=== PATIENT | male | born 1935 | race Caucasian/White ===

== ENCOUNTER 2025-01-31 22:53 | Emergency (ER) | payer BC, SELFPAY ==
[2025-01-31 22:57] VITALS: BP 132/94
[2025-01-31 23:41] LABS: ALT (SGPT) 20 U/L (0-50); AST (SGOT) 23 U/L (17-59); Albumin 4.6 g/dl (3.5-5.0); Alkaline Phosphatase 72 U/L (38-126); Blood Urea Nitrogen 18 mg/dl (9-20); Calcium 9.6 mg/dl (8.4-10.2); Carbon Dioxide 22 mmol/L (22-30); Chloride 97 mmol/L (98-107); Glucose 211 mg/dl (70-99); Potassium 4.5 mmol/L (3.5-5.1); Sodium 134 mmol/L (135-145); Total Bilirubin 1.4 mg/dl (0.2-1.3); Total Protein 7.4 g/dl (6.3-8.2); eGFR > 60.00
--- NOTE | 2025-02-01 00:16 | ED.GENMED ---
History of Present Illness
General
Chief Complaint: Weakness
Time Seen by Provider: 02/01/25 00:03
History of Present Illness
History of Present Illness:
89-year-old male history of hypertension, hyperlipidemia, diabetes presenting with difficulty walking. Patient states that he has had episodes where he stands up, feels dizzy then has a hard time walking. Family states that patient fell backwards
against a wall earlier today prompting ED evaluation. Patient denies striking his head or loss of consciousness. Patient is on baby aspirin but no blood thinners. Patient denies any numbness, weakness, tingling, headache, chest pain, shortness of
breath, new cough, abdominal pain, or urinary symptoms.
Past History
Past History
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
Social History
Tobacco: Non-smoker
Alcohol: Daily
Drug: None
Personal:
Living: with family
Employment: Retired
Family History
Family History: Other (Noncontributory)
Phy Exam
Physical Exam
Physical Exam:
General: Alert, no acute distress
Head: NCAT
Eyes: clear conjunctiva
Neck: supple
Cardiac: regular rate and rhythm, no murmur
Lungs: Diffuse expiratory wheeze. No rales, or rhonchi. Speaking full unlabored sentences. No respiratory distress.
Abdomen: soft, nondistended nontender. No rebound or guarding.
MSK: no lower extremity edema bilaterally. No deformity
Skin: warm, dry
Neuro: Alert and oriented x3. Cranial nerves II through XII grossly intact no focal deficits. Normal finger-nose and [id number]. 5-5 strength bilateral upper and lower extremities. No pronator drift. Sensation intact.
Course
Orders/Labs/Results
Orders:
Orders
01/31/25 23:00
Electrocardiogram (*1) Urgent
Reason for Study: Other
Other Reason for Exam: Possible Sepsis
01/31/25 23:01
EKG- Treatment ONCE
01/31/25 23:09
Comprehensive Metabolic Panel Urgent
02/01/25 00:03
CT Head W/o Iv Contrast Urgent
Reason For Exam: weakness, unsteady gait
02/01/25 00:10
Complete Blood Count/With Diff Urgent
Comment: REDRAW
Manual Differential Urgent
02/01/25 00:37
UA Reflex to Culture [Urinalysis Reflex To Culture] Urgent
Date Specimen was Collected: 02/01/25
Time Specimen was Collected: 00:32
Urine Microscopic Reflex Cult Urgent
Urine Culture Urgent
SHANNAN Source: U
Specimen Description:
Date Specimen was Collected: 02/01/25
Time Specimen was Collected: 00:32
02/01/25 01:05
CXR2 [CR Chest - 2 Views ] Urgent
Comment:
Reason For Exam: cough wheeze
Abnormal Lab Results
01/31/25 02/01/25 02/01/25
23: 00:10 00:37
WBC 3.5 L 10^3/uL
(4.8-10.8)
RBC 4.54 L 10^6/uL
(4.70-6.10)
Plt Count 84 L 10^3/uL
(130-400)
Segmented Neutrophils 36 L %
(42-75)
Band Neutrophils 18 H %
(0-3)
Eosinophils (Manual) 15 H %
(0-6)
Sodium 134 L mmol/L
(135-145)
Chloride 97 L mmol/L
(98-107)
Glucose 211 H mg/dl
(70-99)
Total Bilirubin 1.4 H mg/dl
(0.2-1.3)
Urine Bacteria (Reflex) Moderate A
(Negative)
Urine Glucose 3+ A
(Negative)
Urine Albumin (Reflex) 2+ A
(Neg - Trace)
02/01/25 00:37
01/31/25 23:09
Vital Signs
Initial and Last Documented VS:
Initial Vital Signs
Temp Pulse Resp BP Pulse Ox
98.2 F 101 20 132/94 92
01/31/25 22:57 01/31/25 22:57 01/31/25 22:57 01/31/25 22:57 01/31/25 22:57
Last Documented Vital Signs
Temp Pulse Resp BP Pulse Ox
98.2 F 94 18 132/89 93
01/31/25 22:57 02/01/25 01:44 02/01/25 01:44 02/01/25 01:44 02/01/25 01:44
MDM/Problems Addressed
Differential Diagnosis Includes:
Orthostatic hypotension, electrolyte abnormality, MORRIS, UTI intracranial hemorrhage, arrhythmia
MDM/Problems Addressed:
89-year-old male presenting with unsteady gait starting today. Patient reports feeling dizzy at the time, started after he stood up. Patient denies any complaints at this time is requesting be discharged. On exam patient has an audible wheeze
that family states is baseline for patient. Patient states that he does not use his inhaler as prescribed. Patient denies any chest pain, shortness of breath, or new cough. Patient denies any dizziness currently.
Labs reviewed. Significant for WBC 3.5, platelets 84. Creatinine wnl. Hyperglycemia at 211. Anion gap 15, patient not in DKA. UA shows bacteria but no WBC, leukocyte esterase or nitrites - higher suspicion for colonization, lower suspicion for UTI.
CT head unremarkable. CXR clear with no focal infiltrate or consolidation as read by me. On reevaluation, patient remains asymptomatic with no dizziness. Pt ambulatory with steady gait. Patient possibly symptomatic from standing up too quickly.
Discussed results with patient and family at bedside. Stable for discharge with PCP follow up
*EKG
Interpreted by ED Provider?: Yes (EKG shows normal sinus rhythm at 97 bpm with NJ 214 QTc 454 no acute ischemic changes)
*Critical Care Note
Total Time (30-74mins, 75-104mins- exclusive of procedures): Not Applicable
ED Attending Note
-
Portions of this chart may have been created with voice recognition software.� Occasional wrong word or��sound alike� substitutions may have occurred due to the inherent limitations of voice recognition software.
Discharge Plan
Departure
Patient Disposition: Home (Routine Discharge)
Date of Disposition: 02/01/25
Time of Disposition: 03:05
Patient with high blood pressure during this ER visit?: Yes
Discharge Problem:
Dizziness
Instructions: Dizziness
Prescriptions:
No Action
levothyroxine 75 MCG tablet
75 mcg PO DAILY
omeprazole 20 MG capsule,delayed release(DR/EC)
20 mg PO DAILY
valsartan 160 MG tablet
160 mg PO DAILY
hydrochlorothiazide 12.5 MG tablet
12.5 mg PO DAILY
atorvastatin 40 MG tablet
40 mg PO QPM Qty: 30 0RF
aspirin 81 MG tablet,chewable
81 mg PO DAILY Qty: 30 0RF
metformin 500 MG tablet extended release 24 hr
500 mg PO BID Qty: 1 0RF
Referrals:
Elza Martin, [Family Provider] -
Activity Restrictions/Additional Instructions:
Drink lots of water, stay hydrated
Follow-up with your primary care doctor in 1 to 2 days
Return to the emergency department for fever, chills, or new/worsening symptoms
Interventions
Interventions:
*Risk Screen - Suicide Last Done: 01/31/25 22:57
*General Assessment Last Done: 01/31/25 22:57
*Neglect/Abuse Screening Last Done: 01/31/25 22:57
*ED- Fall Risk Assessment Last Done: 02/01/25 01:40
*ED COVID-19 Vaccine History Last Done: 02/01/25 01:40
ED- Cardiac Assessment Last Done: 02/01/25 01:02
ED- Neurological Assessment Last Done: 02/01/25 01:02
ED- Pulmonary Assessment Last Done: 02/01/25 01:02
Discharge Date and Time
Print Language: PALAUAN
[2025-02-01 00:19] LABS: Hematocrit 40.5 % (39.0-52.0); Hemoglobin 13.5 g/dL (13.0-18.0); Mean Corp Hgb Conc. 33.3 g/dL (33.0-37.0); Mean Corpuscular Hgb 29.7 pg (27.0-31.0); Mean Corpuscular Volume 89.2 fL (80.0-94.0); Mean Platelet Volume 9.3 fL (7.4-10.4); Platelet Count 84 10^3/uL (130-400); Red Blood Cell Count 4.54 10^6/uL (4.70-6.10); White Blood Cell Count 3.5 10^3/uL (4.8-10.8)
[2025-02-01 00:47] LABS: Absolute Neutrophils -Man Diff 1.8 10^3/uL (1.4-6.5); Atypical Lymphocytes 2 %; Band Neutrophils 18 % (0-3); Eosinophils 15 % (0-6); Lymphocytes 26 % (20-51); Monocytes 3 % (2-9); Normal RBC Morphology Yes; Platelets Checked Yes; Segmented Neutrophils 36 % (42-75); Total Cells Counted 100
[2025-02-01 01:01] LABS: Urine Albumin 2+ (Neg - Trace); Urine Bilirubin Negative (Negative); Urine Character Clear (Clear); Urine Color Yellow; Urine Glucose 3+ (Negative); Urine Ketone Negative (Negative); Urine Leukocyte Negative (Negative); Urine Nitrite Negative (Negative); Urine Occult Blood Negative (Negative); Urine Specific Gravity 1.025 (<1.030); Urine Urobilinogen 1+ (Neg - 1+)
[2025-02-01 01:40] VITALS: BMI 32.8
[2025-02-01 01:44] VITALS: BP 132/89
[2025-02-01 01:55] LABS: Urine Amorphous Seen; Urine Bacteria Moderate (Negative); Urine Red Blood Cell 0-2 /HPF (0-2); Urine White Cell 0-2 /HPF (0-5)
== END 2025-02-01 03:23 | disposition home or self-care (01) ==
LOC: EMR 22:53
PROVIDERS: Emergency Medicine; EMERGENCY PHYSICIAN Emergency Medicine; FAMILY PHYSICIAN Family Medicine
DX: R42 Dizziness and giddiness (principal); R26.2 Difficulty in walking, not elsewhere classified; I10 Essential (primary) hypertension; E78.5 Hyperlipidemia, unspecified; E11.65 Type 2 diabetes mellitus with hyperglycemia
CPT/HCPCS: 99285; 70450; 71046; 80053; 81003; 81015; 85025; 87086; 93005

== ENCOUNTER 2025-11-16 12:18 | Emergency (ER) | payer BC, SELFPAY ==
[2025-11-16 12:29] VITALS: BP 110/68
--- NOTE | 2025-11-16 13:44 | ED.GENMED ---
History of Present Illness
General
Chief Complaint: Skin Problem
Time Seen by Provider: 11/16/25 13:22
History of Present Illness
History of Present Illness:
89-year-old male with history of hypertension, uyg-peojizc-ccfpnunzu diabetes, hypothyroidism, and hyperlipidemia presents to the emergency department for evaluation of intense itching that has been ongoing for the past month or more. Has seen a
neck pinner and given a course of steroids which did not help. Has also been treated with antihistamines without benefit. Last week his primary care physician advised him to discontinue HCTZ in hopes that this may help however the symptoms are
not improving. Did have significant erythema and pain to the right elbow after wounds created by itching, currently on cephalexin for this. Denies any night sweats, weight loss, dark urine, or ilda colored stool.
Past History
Past History
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
Social History
Tobacco: Non-smoker
Alcohol: Daily
Drug: None
Personal:
Living: with family
Employment: Retired
Family History
Family History: Other (Noncontributory)
Review of Systems
Review of Systems
Allergies reviewed?: Yes
All Other Systems: ROS reviewed and negative except as documented in HPI and ROS
Phy Exam
Physical Exam
Physical Exam:
GEN: Well appearing, NAD, WDWN
HEENT: Oral mucosa moist, no scleral icterus
Cardiac: Regular rate
Lung: No respiratory distress, no tachypnea
MSK: Moderate swelling and erythema to the right elbow associated with olecranon bursitis
Skin: Good color, no pallor or jaundice, morbilliform/maculopapular eruption to the torso anteriorly and posteriorly, numerous excoriations to the extremities bilaterally without clear rash otherwise
Neuro: AO x3, moves all extremities freely
Psych: Calm, cooperative
Course
Orders/Labs/Results
Orders:
Orders
11/16/25 13:40
Diphenhydramine [Benadryl] 12.5 mg IV NOW STA
11/16/25 14:02
Complete Blood Count/With Diff Urgent
Comprehensive Metabolic Panel Urgent
TSH Urgent
11/16/25 15:21
0.9% Sodium Chloride 1000 ml [Nss] 1,000 ml IV BOLUS
Abnormal Lab Results
11/16/25
14:02
MCHC 31.9 L g/dL
(33.0-37.0)
Abs Immat Gran (auto) 0.1 H 10^3/uL
(0-0.05)
Absolute Eos (auto) 1.0 H 10^3/uL
(0-0.7)
Immature Gran % 1.5 H %
(0-0.5)
Eosinophils % 16.1 H %
(0-6)
BUN 29 H mg/dl
(9-20)
Glucose 183 H mg/dl
(70-99)
TSH 6.19 H uIU/ml
(0.47-4.68)
11/16/25 14:02
11/16/25 14:02
Vital Signs
Initial and Last Documented VS:
Initial Vital Signs
Pulse Resp BP Pulse Ox
90 19 110/68 95
11/16/25 12:29 11/16/25 12:29 11/16/25 12:29 11/16/25 12:29
Last Documented Vital Signs
Pulse Resp BP Pulse Ox
76 18 114/83 98
11/16/25 16:41 11/16/25 16:41 11/16/25 16:41 11/16/25 16:41
MDM/Problems Addressed
MDM/Problems Addressed:
Given that the patient started Farxiga approximately 6 to 8 weeks ago this is the most likely etiology for a drug reaction, the eosinophilia supports this as well. Certainly interesting the steroids in the provide benefit but this is likely because
the patient continue the Farxiga. Will advise he discontinue this, will continue to hold HCTZ and recommend close primary f/u
*Pulse Oximetry
SaO2: 95
Patient hypoxic: no
*Critical Care Note
Total Time (30-74mins, 75-104mins- exclusive of procedures): Not Applicable
ED Attending Note
-
Portions of this chart may have been created with voice recognition software.� Occasional wrong word or��sound alike� substitutions may have occurred due to the inherent limitations of voice recognition software.
Discharge Plan
Departure
Patient Disposition: Home (Routine Discharge)
Date of Disposition: 11/16/25
Time of Disposition: 15:21
Patient with high blood pressure during this ER visit?: No
Discharge Problem:
Drug reaction
Prescriptions:
No Action
levothyroxine 75 MCG tablet
75 mcg PO DAILY
omeprazole 20 MG capsule,delayed release(DR/EC)
20 mg PO DAILY
valsartan 160 MG tablet
160 mg PO DAILY
hydrochlorothiazide 12.5 MG tablet
12.5 mg PO DAILY
atorvastatin 40 MG tablet
40 mg PO QPM Qty: 30 0RF
aspirin 81 MG tablet,chewable
81 mg PO DAILY Qty: 30 0RF
metformin 500 MG tablet extended release 24 hr
500 mg PO BID Qty: 1 0RF
Referrals:
Elza Martin DO [Family Provider, Family Practice]
Activity Restrictions/Additional Instructions:
Stop your Farxiga
Please continue to hold off on taking HCTZ until directed by your primary doctor
The rash should improve in 7-10 days after stopping the offending medication
Increase intake of clear fluids (aka, WATER)
Interventions
Interventions:
*General Assessment Last Done: 11/16/25 12:30
*Neglect/Abuse Screening Last Done: 11/16/25 12:30
*ED COVID-19 Vaccine History Last Done: 11/16/25 12:30
*ED Influenza Vaccine History Last Done: 11/16/25 12:31
[facility] Fall Risk Assessment Tool Last Done: 11/16/25 16:00
*Risk Screen - Suicide (C-SSRS) Last Done: 11/16/25 12:30
*Nursing Disposition Last Done: 11/16/25 16:43
ED-Skin Assessment Last Done: 11/16/25 14:23
Discharge Date and Time
Discharge Date/Time: 11/16/25 16:46
Print Language: SLOVENIAN
[2025-11-16] MEDS: BENADRYL 12.5 MG IV (14:19)
[2025-11-16 14:23] VITALS: BMI 28.8
[2025-11-16 14:37] LABS: Hematocrit 46.7 % (39.0-52.0); Hemoglobin 14.9 g/dL (13.0-18.0); Mean Corp Hgb Conc. 31.9 g/dL (33.0-37.0); Mean Corpuscular Volume 90.0 fL (80.0-94.0); Nucleated Red Blood Cells % 0 % (-); Platelet Count 306 10^3/uL (130-400); Red Cell Dist. Width 14.3 % (11.5-14.5)
[2025-11-16 15:03] LABS: ALT (SGPT) 37 U/L (0-50); AST (SGOT) 31 U/L (17-59); Albumin 4.1 g/dl (3.5-5.0); Alkaline Phosphatase 98 U/L (38-126); Blood Urea Nitrogen 29 mg/dl (9-20); Calcium 9.8 mg/dl (8.4-10.2); Carbon Dioxide 23 mmol/L (22-30); Chloride 103 mmol/L (98-107); Estimated Creatinine Clearance 39 ml/min; Glucose 183 mg/dl (70-99); Potassium 4.5 mmol/L (3.5-5.1); Sodium 135 mmol/L (135-145); Total Protein 7.5 g/dl (6.3-8.2); eGFR 52.84
[2025-11-16 15:34] LABS: TSH 6.19 uIU/ml (0.47-4.68)
[2025-11-16] MEDS: NSS 1000 IV (15:40)
[2025-11-16 16:41] VITALS: BP 114/83
== END 2025-11-16 16:46 | disposition home or self-care (01) ==
LOC: EMR 12:18
PROVIDERS: Physician Assistant; EMERGENCY PHYSICIAN Emergency Medicine; FAMILY PHYSICIAN Family Medicine
DX: L29.9 Pruritus, unspecified (principal); T38.3X5A Adverse effect of insulin and oral hypoglycemic [antidiabetic] drugs, initial encounter; X58.XXXA Exposure to other specified factors, initial encounter; E03.9 Hypothyroidism, unspecified; E11.9 Type 2 diabetes mellitus without complications; E78.5 Hyperlipidemia, unspecified; I10 Essential (primary) hypertension; Z79.899 Other long term (current) drug therapy
CPT/HCPCS: 96374; 96361; 99284; 80053; 84443; 85025